=== PATIENT | male | born 1995 | race American Indian/Alaskan Native ===

== ENCOUNTER 2017-04-04 20:26 | Emergency (ER) | payer BC ==
[2017-04-04 21:20] VITALS: BMI 22.1
[2017-04-04 21:23] VITALS: PULSE 61; TEMP 98.2; O2SAT 100
[2017-04-04] MEDS ORDERED: TDAP Vaccine 0.5 mL Syr IM ONE (21:52)
--- NOTE | 2017-04-04 21:56 | ED PDOC ---
Arrival/HPI - General Historian: Patient - History of Present Illness Time/Duration: Other (1 day) Context: Home - General Chief Complaint: Abnormal Skin Integrity Time Seen by Provider: 04/04/17 21:45 - History of Present Illness Narrative History of Present Illness (Text): 04/04/17 21:53 This 21 yo male presents to this ED c/o left plantar foot puncture wound x 1 day. Patient stated he stepped on a laila nail while walking with shoes. Denies other complains. (Markos Carnes) Past Medical History - Provider Review Nursing Documentation Reviewed: Yes - Infectious Disease Hx of Infectious Diseases: None - Tetanus Immunization Tetanus Immunization: Unknown - Past Medical History Past Medical History: No Previous - Psychiatric Hx Substance Use: No - Past Surgical History Past Surgical History: No Previous - Anesthesia Hx Anesthesia: No Hx Anesthesia Reactions: No Hx Malignant Hyperthermia: No - Suicidal Assessment Feels Threatened In Home Enviroment: No Family/Social History - Physician Review Nursing Documentation Reviewed: Yes Family/Social History: No Known Family HX Smoking Status: "weed" Hx Alcohol Use: No Hx Substance Use: No Hx Substance Use Treatment: No Allergies/Home Meds Allergies/Adverse Reactions: Allergies watermelon Allergy (Verified 04/04/17 21:21) ANGIOEDEMA Review of Systems - Review of Systems Constitutional: Normal. absent: Fatigue, Weight Change, Fevers Eyes: Normal ENT: Normal Respiratory: Normal Cardiovascular: Normal Gastrointestinal: Normal Genitourinary Male: Normal Musculoskeletal: Other ((+) left foot plantar puncture) Skin: Normal Neurological: Normal Endocrine: Normal Hemo/Lymphatic: Normal Psychiatric: Normal Physical Exam Temperature: Afebrile Blood Pressure: Normal Pulse: Regular Respiratory Rate: Normal Appearance: Positive for: Well-Appearing, Non-Toxic, Comfortable Pain Distress: None Mental Status: Positive for: Alert and Oriented X 3 - Systems Exam Head: Present: Atraumatic, Normocephalic Pupils: Present: PERRL Extroacular Muscles: Present: EOMI Conjunctiva: Present: Normal Mouth: Present: Moist Mucous Membranes Upper Extremity: Present: Normal Inspection, Normal ROM Lower Extremity: Present: NORMAL PULSES, Normal ROM, Neurovascularly Intact, Capillary Refill < 2 s, Other ((+) puncture wound noted mid plantar, left foot) . No: Edema, CALF TENDERNESS, Natacha's Sign, Temperature Abnormalties Neurological: Present: GCS=15, CN II-XII Intact, Speech Normal, Motor Func Grossly Intact, Normal Sensory Function, Normal Cerebellar Funct, Gait Normal Skin: Present: Warm, Dry, Normal Color. No: Rashes Psychiatric: Present: Alert, Oriented x 3 Medical Decision Making Re-evaluation Time: 22:12 Reassessment Condition: Re-examined, Improved ED Course and Treatment: 04/04/17 22:12 Re-evaluation. Patient feels better. Discussed results and plan with patient who expresses understanding. All questions answered and there is agreement with the plan to discharge home with instructions. Patient stable for discharge. Return if symptoms persist or worsen. I spoke with patient about the risk of taking Ciprofloxacin which includes tendonitis, and tendon rupture. This risk could extend for 1-2 months, and he is awre to avoid extraneous activities. Patient understood plan, and risks. (Markos Carnes) - RAD Interpretation Narrative RAD Interpretations (Text): 04/04/17 22:12 Foot x-rays: No fx or FB (Markos Carnes) Radiology Orders: 04/04/17 21:51 FOOT LEFT 3 VIEWS ROUTINE [RAD] Stat - Medication Orders Current Medication Orders: Discontinued Medications Ciprofloxacin (Cipro) 500 mg PO ONCE STA PRN Reason: Protocol Stop: 04/04/17 21:53 Last Admin: 04/04/17 22:17 Dose: 500 mg Tetanus/Reduced Diphtheria/Acell Pertussis (Boostrix Vaccine Inj) 0.5 ml IM .ONCE ONE Stop: 04/04/17 21:53 Last Admin: 04/04/17 22:17 Dose: 0.5 ml Disposition/Present on Arrival - Present on Arrival Any Indicators Present on Arrival: No History of DVT/PE: No History of Uncontrolled Diabetes: No Urinary Catheter: No History of Decub. Ulcer: No History Surgical Site Infection Following: None - Disposition Have Diagnosis and Disposition been Completed?: Yes Disposition Time: 22:15 Patient Plan: Discharge - Disposition Diagnosis: Puncture wound of foot, left Disposition: HOME/ ROUTINE Condition: GOOD Discharge Instructions (ExitCare): Puncture Wound (ED) Additional Instructions: Call private doctor for follow up visit in 1-2 days. You can also call waste water worker foot doctor for revaluation. return to emergency if wound becomes painful, redness, or discharge. Take medication as instructed. Prescriptions: Ciprofloxacin HCl [Cipro] 500 mg PO BID #10 tablet Referrals: Lazarus Mercado DPM [Staff Provider] - Follow up with primary Forms: [facility] [facility] ([place]), WORK NOTE
[2017-04-04 22:52] VITALS: BP 132/80; RESP 16
--- NOTE | 2017-04-05 07:26 | RAD ---
PROCEDURE: Left Foot Radiographs. HISTORY: r/o Fb COMPARISON: None. FINDINGS: BONES: Normal. No fracture. JOINTS: Normal. SOFT TISSUES: Normal. OTHER FINDINGS: None. IMPRESSION: Normal left foot radiographs.
== END 2017-04-04 22:30 | disposition home or self-care (01) ==
LOC: ED 20:26
DX: S91.332A Puncture wound without foreign body, left foot, initial encounter (principal); W45.0XXA Nail entering through skin, initial encounter; Y92.89 Other specified places as the place of occurrence of the external cause; Z23 Encounter for immunization